=== PATIENT | female | born 1990 | race Caucasian/White ===

== ENCOUNTER → 2019-09-23 15:52 | Outpatient (CLI) | payer OTHER, SELFPAY ==
[2019-09-23 16:38] LABS: Fetal Fibronectin Negative
== END ==
PROVIDERS: Visit Provider Obstetrics & Gynecology
DX: O60.00 Preterm labor without delivery, unspecified trimester (principal); Z3A.00 Weeks of gestation of pregnancy not specified
CPT/HCPCS: 82731

== ENCOUNTER 2019-11-08 07:05 | Inpatient (IN) | payer OTHER, SELFPAY ==
[2019-11-08] VITALS (50 sets, daily range): BP systolic 94–144; BP diastolic 54–92; PULSE 64–116; RESP 16–18; TEMP 36.3–37.2; O2SAT 96–100; BMI 29.0
[2019-11-08] MEDS: Lactated Ringers 1,000 ML 50 ML IV (08:01)
[2019-11-08] MEDS: Lactated Ringers 500 ML 999 ML IV (08:01)
[2019-11-08 08:28] LABS: Absolute Lymphocyte Count 1.83 X10^3/uL (0.83-4.51); Absolute Neutrophil Count 5.1 X10^3/uL (2.0-7.7); Basophil# 0.04 X10^3/uL; Basophil% 0.5 % (0-1); Eosinophil# 0.05 X10^3/uL; Eosinophils% 0.7 % (0-5); Hematocrit 35.5 % (37-47); Hemoglobin 12.1 g/dL (12.0-15.0); Lymphocyte # 1.83 X10^3/ul (4.0); Lymphocyte % 24.3 % (19-41); Mean Corp Hgb Conc 34.1 g/dL (32-36); Mean Corpuscular Hgb 33.2 pg (27.0-32.0); Mean Corpuscular Volume 97.5 fL (81-99); Monocyte# 0.46 X10^3/uL; Monocyte% 6.1 % (0-10); NRBC Flagged by Analyzer 0 % (0-5); Neutrophil % 67.9 % (47-70); Platelet Count 151 K/mm3 (150-450); RBC Distribution Width CV 12.7 % (11.6-14.6); RBC Distribution Width SD 44.6 fl (35.1-43.9); Red Blood Count 3.64 M/mm3 (4.2-5.4); White Blood Count 7.5 K/mm3 (4.4-11.0)
[2019-11-08] MEDS: Oxytocin 30 units/NS 500 ml 30 UNITS/500 ML IV.SOLN IV (08:49)
--- NOTE | 2019-11-08 10:00 | PCM.HP.BLA ---
History and Physical Date of Admission: 11/08/19 ACOG ANTEPARTUM RECORD - HISTORY AND PHYSICAL (11/08/2019) Name: DIANE ON History of This : This is a 29-year-old G3, P2 who presents for elective induction at 39+ weeks gestation. care has been uneventful. OB Physician: ENEIDA [place]'s Physician: Angel Jackson ...................................................................... : 1990 Age: 29 Address: [address] [place] [address] Phone: ([phone] ([phone] Insurance Carrier: [employer] [id number] Emergency Contact: CELIA NO [phone] ...................................................................... Final GEMA: 11/09/19 By Ultrasound: 8 weeks 2 days PARITY: (G-Total Pregnancies P-Fullterm,Premature,Induced AB,Spont AB, Ectopics, Multiple,Living) GEMA CONFIRMATION: By LMP: 02/02/19 Final GEMA: 11/09/19 OB PROBLEM LIST: First delivery 24 h labor w 4 h 2nd stage. Second baby 1 hour labor w 3 pushes. [facility] tour- delivered in [place] previously. MULTIPLE SEVERE DRUG ALLERGIES W ANAPHYLACTIC REACTION: TYLENOL, IBUPROFEN, OMEPRAZOLE. SUDAFED, PHENYLEPHINE, CHEWABLE VITAMIN C. CARRIES EPI PEN. At NOB visit wt down 10#. Going to [place] for 2 weeks in Mar 2019 ALLERGIES: Ibuprofen Anaphylaxis Omeprazole Anaphylaxis Phenylephrine Anaphylaxis Sudafed Anaphylaxis Tylenol Anaphylaxis MEDICATIONS: EpiPen 0.3 mg/0.3 mL injection, auto-injector As Directed Gummies 400 mcg-35 mg-25 mg-5 mg chewable tablet opposite day of other pnv One Daily 27 mg iron- 800 mcg tablet every other day Zofran 8 mg tablet One pill by mouth three times a day prn nausea SOCIAL HISTORY: Smoking - Never Alcohol Use - RARELY not while Diet - balanced Diet, caffeine < 2 drinks per day and Lactose intolerance in milk. Uaually good water intake. 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 Illicit Drug Use - denies use of street drugs Sexual Activity - single sexual partner Residence - owns a home Place of - [place] Hours Worked - prn Spouse-Sig Other Name - Celia Spouse-Sig Other Occupation - [employer] Spouse-Sig Other Phone No - [phone] Children Name(s) - Jeison Medina PRIOR DELIVERY HISTORY DEL DATE GEST LAB WT LB WT OZ TYPE ANES LABOR TX 07 Aug 06 40 24 7 7 Vag Epidural No 20 Aug 08 40 1 8 4 Vag Local No ANTEPARTUM FLOW CHART VISIT GE RTC FU F F CT U U DATE WK MD WKS HT PN HR M SS BP ED WT CT GL D EF ST __ ____ ___ __ __ ___ __ __ __ ___ __ __ __ ___ __ 08 Oct JMW 1 38 + + 110/88 sl 156 tr - S+ Oct JMW 1 37 V + + 112/62 tr 156 tr - S Sep CH 1 36 V + + 120/84 sl 156 - - 4 75 -1 Sep JMW 1 36 V + + 116/70 sl 157 tr - 3 75 -1 Sep JMW 1 35 V + + 124/74 sl 155 - - S August JMW 2 33 V + + 126/74 sl 156 - - 2+ 50 -2 September 24 JMW 3 30 + + 124/80 tr 151 tr - 16 Aug 22 JMW 3 27 + + 124/80 0 150 tr - Jun 16 JMW 4 20 + + 136/78 0 140 - - May 11 JMW 5 14 + US 118/70 0 138 - - Apr 06 SHM 4 on 140/88 0 146 tr - ANTEPARTUM NOTE(S): Nov 03 2019: Induce per request Oct 27 2019: Ctxs-occas, Good FM Oct 20 2019: see note Oct 13 2019: GBS Today and LARC Signed,Good FM Oct 06 2019: Good FM Sep 23 2019: see progress note, off work, FFN sent, OFF Work Sep 03 2019: CBC,OGCT Today,Good FM,Feeling Well Aug 12 2019: Glucola/Instructions Given.Good FM Jun 21 2019: Sono Today,Feeling Well May 12 2019: PNV,NOB and Shira,Extreme N/V Apr 16 2019: spotting/bleeding COMPREHENSIVE ANTEPARTUM NOTE(S): Oct 27 2019: Reports had contractions every six minutes last evening for about four hours, then went to bed at eleven and slept through the night. Contractions continue this morning, and she has not been timing them as of yet. Denies spotting or fluid leakage thus far. ALPA Oct 20 2019: Diane is being seen for PNV. Pt states baby had hiccups for about 3 hours yesterday and since he has felt different. She said she has had more cramping and did have spotting 3-4 days ago. AM Oct 20 2019: Pt of Dr. Vidse's here today for PNV. Reports +FM. FHR 136. SVE /-1 soft, stretchy and anterior. Lots of FM while in room so decision not to have NST, but reassured if ever feeling decreased movements again to let us know and NST to be done. Understands signs of labor and when to call. - CH Oct 19 2019: H taken to OB. tkg Oct 06 2019: Diane thinks she passed some of her mucous plug this morning w/some spotting. After that, she had 3 episodes of her abdomen being tight w/ no relief for 25-30 min. Pubic bone still very painful. Concerned about fetus having more frequent episodes of hiccoughs. FM has decreased, but sitll having at least 10 FM in 2 hrs. 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 Feeling more pelvic pressure, thinks she has pubic bone separation, R hip flexor pain. Good FM. Having Abdulkadir Bañuelos > 6/hr -- drinking a gallon water daily-- states she has been having ctx's for the past month. Still has ctx's when not at home. Passed a large chunk of mucous over the weekend. No spotting. No leaking fluid. She would like to discuss stopping work. [facility] May 12 2019: Diane and Celia are here for NOB nurse visit with GEMA 11-09-19 planning a vag del at [facility], uncertain of epidural, using [facility] ped service and will breastfeed. 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 Celia works for [employer]. They have an 8 1/2 yo daughter and a 6 1/2 yo son. The pg is welcomed. Diane has multiple allergies to drugs including: Ibuprofen, Tylenol, Omeprazole, Sudafed, Phenylephrine and chewable Vitamin C. She has an anaphylactic reaction to these. Diane carries a current epi pen. She is extremely cautious about all medications. Diane is a lifetime non smoker, very rarely drinks alcohol and denies past or present street drug use. Her diet is balanced- she drinks lactose free milk and minimal caffeine. Usually she drinks a good amt of water. She is 5 days home from a 2 week trip to [place] where she vomited at least 10 x a day the whole visit. Her weight today is 10# down from 12-20-19. She is starting to feel better. Long dip on urine no ketones. Diane is active at work but hasn't felt much like doing any exercise. Enc to walk 20 min q day unless inclement weather. No bleeding since last visit. Genetic Screening form completed noting no family issues. She is completing a course of Amoxicillin for a sinus infection and occ takes Zofran ODT. They decline AFP and CF tests. Warning signs in reviewed as well as otc meds ok to take, wearing seatbelt low on her abdomen, lifting restriction of 20-25#, the importance of protein in her diet and reaching our office after hours. She delivered her other children at [facility] in [place]. The first was a long 1st and 2nd stage with an epidural that did not make me numb at all and wet the pillow behind me. Her second was a one hour and 3 pushes labor. [facility] OB tour suggested and written out for her. She nursed for 13 months and 10 months. No office classes needed. They have a copy of What to Expect. US done previously. Routine labs drawn today. Enc to call w concerns. Visit took one hour. Teresa HARMON. Apr 16 2019: Diane is here for emergency visit for evaluation of heavy bleeding. She had prior viable u/s. Today u/s shows viable IUP and no bleed. Further f/u with Dr NG for evaluation of cervix. LMT Apr 03 2019: GC/CT negative - CH Apr 01 2019: Diane is being seen for missed menses visit. Pt is new to facility. is with pt for visit. . UPT in office is positive. LMP 10-8-19. Pt is about 8 weeks and 2 days. GEMA 11-09-19. Pt has alot of pharmaceutical allergies. She also rotates prenatals due to having a diet high in iron and does not want to have too much iron. Pt states her last pap was 2018 and was normal. Agreed to do pap and cultures today. She delivered two other children at [facility] where she does not have an ID to anymore so she may not be able to get records. Medications and allergies are up to date. AM Apr 01 2019: ok REVIEW OF SYSTEMS: GENERAL - Denies fever, or chills SKIN - Denies rash, new skin lesions, or change in moles EYES - Denies blurred vision, or change in visual acuity EARS - Denies ear pain, or difficulty hearing NOSE - Denies nasal congestion, discharge, or bleeding MOUTH - Denies sore throat, or difficulty swallowing NECK - Denies pain or swelling RESPIRATORY - Denies shortness of breath, cough, wheezing CARDIOVASCULAR - Denies palpitations, chest pain, orthopnea, PND, peripheral edema, syncope or claudication GASTROINTESTINAL - Denies nausea, vomiting, diarrhea, constipation, Denies abdominal pain, melena and or bright red blood GENITOURINARY - Denies dysuria, frequency of urination, urgency, or hesitancy MUSCULOSKELETAL - Denies joint or muscle pain, or back pain NEUROLOGICAL - Denies localized numbness, weakness, or tingling PSYCHIATRIC - Denies depression, anxiety, substance abuse or suicide attempts ENDOCRINE - Denies heat or cold intolerance, weight loss or gain, increasing thirst HEMATO-IMMUNOLOGIC - Denies easy bruising, bleeding, oral ulcerations or recurrent infections GENETICS SCREENING: Age 35+ years: No Thalassemia: No Neural Tube Defect: No Down Syndrome: No FÉLIX-SACHS: No Sickle Cell Disease: No Hemophilia: No Musc. Dystrophy: No Cystic Fibrosis: No-declines screening [place] Chorea: No Mental Retardation: No Fragile X: No Other genetic: No Other defects: No SABs/still births: No Drugs since LMP: Yes, Amoxicillin, Zofran INFECTION HISTORY: High risk AIDS: No High risk Hepatitis: No Exposed to TB: No Exposed to Herpes: No Rash/viral illness since LMP: No History of STD: No MENSTRUAL HISTORY: *Menses Amount/Duration: 6-7 DAYSMenses Regularity: RegularFrequency: monthly* PAST SUMMARY: PARITY: 1. Total Pregnancies............ 3 2. Full Term Pregnancies........ 2 3. Premature.................... 0 4. Abortions - Induced.......... 0 5. Abortions - Spontaneous...... 0 6. Ectopics..................... 0 7. Multiple Births.............. 0 8. Living Children.............. 2 PAST #1: Date of :.................. 08/02/10 Gestation Weeks:................ 40 Length of labor(hours):......... 24 Sex:............................ F Weight-lbs:............... 7 Weight-oz:................ 7 Type of Delivery:............... Vag Type of Anesthesia:............. Epidural Place of Delivery:.............. [place] Treatment of Labor?:.... No Comment: 4H 2ST, [place] PAST #2: Date of :.................. 08/15/12 Gestation Weeks:................ 40 Length of labor(hours):......... 1 Sex:............................ M Weight-lbs:............... 8 Weight-oz:................ 4 Type of Delivery:............... Vag Type of Anesthesia:............. Local Place of Delivery:.............. [place] Treatment of Labor?:.... No Comment: RAPID 2STAGE PHYSICAL EXAMINATION General Appearence: 29 yo female in no acute distress Vital Signs: AF, VSS Heart: RRR without rubs or gallops Lungs: CTA x 2 Breasts: deferred Abdomen: gravid Pelvis: Cervix: 4/75 Presentation: cephalic Station: -2 Fetus: Size: AGA Movement: present Heart: present Labs for : DIANE ONEAL since 02/12/2019 ORDER DATEIN DESCRIPTION VALUE UNITS RANGE A+ COMMENT TYPE AND SCREEN 11/08/19 Reason for Type AND Screen/Red Cells: Labor [facility]~[address] [place], [address]~ BLOOD TYPE GEL A POSITIVE N ANTIBODY SCREEN NEGATIVE N CBC W/DIFF, AUTOMATED 11/08/19 NOTE Original Ordering Provider: Rufina Vides WBC 7.5 K/mm3 4.4-11.0 RBC 3.64 M/mm3 4.2-5.4 L HGB 12.1 g/dL 12.0-15.0 HCT 35.5 % 37-47 L MCV 97.5 fL 81-99 MCH 33.2 pg 27.0-32.0 H MCHC 34.1 g/dL 32-36 RDW CV 12.7 % 11.6-14.6 RDW SD 44.6 fl 35.1-43.9 H PLT 151 K/mm3 150-450 MPV 13.0 fl 6.2-12.0 H NEUT% 67.9 % 47-70 LY% 24.3 % 19-41 MONO% 6.1 % 0-10 EO% 0.7 % 0-5 BASO% 0.5 % 0-1 IM GRAN % 0.500 % 0.0-0.9 IG% - Immature Granulocytes (promyelocytes, myelocytes and metamyelocytes) > 1% indicates that a LEFT SHIFT is Present. ABSOLUTE NEUT 5.1 X10 3/uL 2.0-7.7 ABSOLUTE LYMPH 1.83 X10 3/uL 0.83-4.51 NRBC, FLAGGED 0 % 0-5 STREP GP B CULTURE 10/13/19 STREP GP B CULTURE Negative Negative Centers for Disease Control and Prevention (CDC) and [place] Congress of Obstetricians and Gynecologists (ACOG) guidelines for prevention of group B streptococcal (GBS) disease specify co-collection of a vaginal and rectal swab specimen to maximize sensitivity of GBS detection. Per the CDC and ACOG, swabbing both the lower vagina and rectum substantially increases the yield of detection compared with sampling the vagina alone. . Penicillin G, ampicillin, or cefazolin are indicated for intrapartum prophylaxis of GBS colonization. Reflex susceptibility testing should be performed prior to use of clindamycin only on GBS isolates from penicillin-allergic women who are considered a high risk for anaphylaxis. Treatment with vancomycin without additional testing is warranted if resistance to clindamycin is noted. AMBIGUOUS TEST ORDER 10/13/19 AMBIGUOUS TEST ORDER A specimen was received for microbiology/virology testing with either an incorrect test number or without a written test number. The specimen has been processed according to the default policy listed in the Microbiology Appendix of the Directory of Services. Please use the correct test numbers to assure optimum processing of the specimens. Reviewed by RUFINA FIBRONECTIN 09/23/19 NOTE Original Ordering Provider: Rufina Vides FFN Negative Reviewed by RUFINA CUBA. DIABETES 1-HR SCREEN 09/03/19 GESTATIONAL DIABETES SCREEN 119 mg/dL 65-139 According to ADA, a glucose threshold of >139 mg/dL after 50-gram load identifies approximately 80% of women with gestational diabetes mellitus, while the sensitivity is further increased to approximately 90% by a threshold of >129 mg/dL. CBC WITH DIFFERENTIAL/PLATELET 09/03/19 WBC 8.5 x10E3/uL 3.4-10.8 RBC 3.96 x10E6/uL 3.77-5.28 HEMOGLOBIN 13.0 g/dL 11.1-15.9 HEMATOCRIT 38.2 % 34.0-46.6 MCV 97 fL 79-97 MCH 32.8 pg 26.6-33.0 MCHC 34.0 g/dL 31.5-35.7 RDW 11.9 % 11.7-15.4 PLATELETS 173 x10E3/uL 150-450 NEUTROPHILS 76 % Not Estab. LYMPHS 18 % Not Estab. MONOCYTES 5 % Not Estab. EOS 1 % Not Estab. BASOS 0 % Not Estab. IMMATURE CELLS NEUTROPHILS (ABSOLUTE) 6.5 x10E3/uL 1.4-7.0 LYMPHS (ABSOLUTE) 1.6 x10E3/uL 0.7-3.1 MONOCYTES(ABSOLUTE) 0.4 x10E3/uL 0.1-0.9 EOS (ABSOLUTE) 0.1 x10E3/uL 0.0-0.4 BASO (ABSOLUTE) 0.0 x10E3/uL 0.0-0.2 IMMATURE GRANULOCYTES 0 % Not Estab. IMMATURE GRANS (ABS) 0.0 x10E3/uL 0.0-0.1 NRBC HEMATOLOGY COMMENTS: Reviewed by RUFINA HCV ANTIBODY 05/12/19 HEP C VIRUS AB <0.1 s/co ratio 0.0-0.9 Negative: < 0.8 Indeterminate: 0.8 - 0.9 Positive: > 0.9 . The CDC recommends that a positive HCV antibody result be followed up with a HCV Nucleic Acid Amplification test ([id number]). NTI Urine Tube (Conti) NTI Urine Tube (Conti) . A urine culture transport was received with no test indicated. If testing is required on this specimen, please contact the [facility] Client Inquiry/Technical Services Department to obtain a Request for Written Authorization Form. CBC/D/PLT+RPR+UA+RH+ABO+RUB... 05/12/19 TSH 0.774 uIU/mL 0.450-4.500 HBSAG SCREEN Negative Negative RPR Non Reactive Non Reactive RUBELLA ANTIBODIES, IGG 13.00 index Immune >0.99 Non-immune <0.90 Equivocal 0.90 - 0.99 Immune >0.99 ABO GROUPING A RH FACTOR Positive Please note: Prior records for this patient's ABO / Rh type are not available for additional verification. ANTIBODY SCREEN Negative Negative HIV SCREEN 4TH GENERATION WRFX Non Reactive Non Reactive WBC 7.1 x10E3/uL 3.4-10.8 RBC 4.31 x10E6/uL 3.77-5.28 HEMOGLOBIN 13.6 g/dL 11.1-15.9 HEMATOCRIT 40.2 % 34.0-46.6 MCV 93 fL 79-97 MCH 31.6 pg 26.6-33.0 MCHC 33.8 g/dL 31.5-35.7 RDW 13.1 % 11.7-15.4 Please note reference interval change PLATELETS 216 x10E3/uL 150-450 NEUTROPHILS 68 % Not Estab. LYMPHS 24 % Not Estab. MONOCYTES 7 % Not Estab. EOS 1 % Not Estab. BASOS 0 % Not Estab. IMMATURE CELLS NEUTROPHILS (ABSOLUTE) 4.8 x10E3/uL 1.4-7.0 LYMPHS (ABSOLUTE) 1.7 x10E3/uL 0.7-3.1 MONOCYTES(ABSOLUTE) 0.5 x10E3/uL 0.1-0.9 EOS (ABSOLUTE) 0.0 x10E3/uL 0.0-0.4 BASO (ABSOLUTE) 0.0 x10E3/uL 0.0-0.2 IMMATURE GRANULOCYTES 0 % Not Estab. IMMATURE GRANS (ABS) 0.0 x10E3/uL 0.0-0.1 NRBC HEMATOLOGY COMMENTS: SPECIFIC GRAVITY >=1.030 1.005-1.030 A PH 5.5 5.0-7.5 URINE-COLOR Yellow Yellow APPEARANCE Clear Clear WBC ESTERASE Negative Negative PROTEIN Negative Negative/Trace GLUCOSE Negative Negative KETONES Negative Negative OCCULT BLOOD Negative Negative BILIRUBIN Negative Negative UROBILINOGEN,SEMI-QN 0.2 mg/dL 0.2-1.0 NITRITE, URINE Negative Negative MICROSCOPIC EXAMINATION Microscopic not indicated and not performed. Reviewed by RUFINA DA SILVA/GC AMPLIFICATION 04/01/19 CHLAMYDIA TRACHOMATIS, ANGELA Negative Negative NEISSERIA GONORRHOEAE, ANGELA Negative Negative Reviewed by CHARTMAN Impression /Plan: 39+ week intrauterine for elective induction. Preparations in progress for delivery.
[2019-11-08] MEDS: fentaNYL-bupivacaine (epidural) 100 ML BAG EPIDURAL (10:04)
[2019-11-08] MEDS: Lactated Ringers 1,000 ML 200 ML IV (13:25)
[2019-11-08] MEDS: Oxytocin 30 units/NS 500 ml 30 UNITS/500 ML IV.SOLN 334 UNITS IV (14:19)
--- NOTE | 2019-11-08 14:29 | PCM.OPRPT ---
Vaginal Delivery Maternal Presentation: Elective Induction Method of Induction: Pitocin, Amniotomy Amniotic Membrane Rupture Type: Artificial Amniotic Fluid Description: Clear Final GEMA: 11/09/19 Final GEMA Source: US <20 weeks Gestational age: 39 Weeks and 6 Days Date of Procedure: 11/08/19 Pre-Operative Diagnosis: IUP Post-Operative Diagnosis: IUP Surgery/ Procedure Performed: Spontaneous Vaginal Delivery Type of Anesthesia: Epidural Description of Procedure: Spontaneous vaginal delivery of a viable female infant with Apgars of 8/9 from an occiput anterior presentation with clear amniotic fluid and normal three-vessel placenta. No episiotomy. First-degree midline laceration repaired with 3-0 repeat suture under epidural. Sponges okay. Delivery physician: Phil Vides MD. Presentation: Vertex Placental Delivery Description: Spontaneous Placenta Disposition: [facility] Cord Vessel Description: 3 Vessels Cord Entanglement: None Estimated Blood Loss: 250 cc Infant A gender: Female (1 minute): 8 (5 minute): 9 Episiotomy Description: None Laceration: Midline, 1st degree Medications given after delivery: IV Pitocin Complications: None
[2019-11-08] MEDS: 0.9% Saline Lock 10 ML Syringe IV (17:32)
[2019-11-09] VITALS (7 sets, daily range): BP systolic 107–123; BP diastolic 68–92; PULSE 79–96; RESP 16–18; TEMP 36.6–37.2
--- NOTE | 2019-11-09 04:43 | PN.OBGYN_ITS ---
Subjective: Patient without complaints. Breast-feeding going well. Minimal vaginal bleeding. Wants to go home later today if baby is able to go. - Physical Exam Vitals/I&O's: Vital Signs Temp Pulse Resp BP Pulse Ox 97.4 F L 78 16 116/77 98 11/08/19 23:28 11/08/19 23:28 11/08/19 23:28 11/08/19 23:28 11/08/19 23:28 Oxygen Delivery Method Room Air Weight: 158 lb 12.8 oz Body Mass Index (BMI) 29.0 Intake and Output for Last 24 Hours 11/07/19 11/08/19 11/09/19 23:59 23:59 23:59 Intake Total 2479.03 / 2479.03 Output Total 1950 / 1950 Balance 529.03 / 529.03 Laboratory Results 11/08/19 07:52: WBC 7.5, RBC 3.64 L, Hgb 12.1, Hct 35.5 L, MCV 97.5, MCH 33.2 H, MCHC 34.1, RDW Std Deviation 44.6 H, RDW Coeff of Ilene 12.7, Plt Count 151, MPV 13.0 H, Immature Gran % (Auto) 0.500, Neut % (Auto) 67.9, Lymph % (Auto) 24.3, [place] % (Auto) 6.1, Eos % (Auto) 0.7, Baso % (Auto) 0.5, Absolute Neuts (auto) 5.1, Absolute Lymphs (auto) 1.83, Nucleated RBC % 0 11/08/19 07:52: Blood Type A POSITIVE, Antibody Screen NEGATIVE Current Medications Bisacodyl (Dulcolax) 10 mg RECTAL UD PRN PRN Reason: If no BM Dibucaine (Dibucaine) 1 applic TOPICAL TID PRN PRN; Protocol PRN Reason: Discomfort Hydrocortisone (Hytone) 1 applic TOPICAL TID PRN PRN; Protocol PRN Reason: Discomfort Methylergonovine Maleate (Methergine) 0.2 mg IM X1 PRN PRN Reason: Excess bleeding/uterine atony Ondansetron HCl (Zofran) 4 mg IV Q4H PRN PRN PRN Reason: Nausea Oxycodone HCl (Oxyir) 5 - 10 mg PO Q4H PRN PRN PRN Reason: Pain Score 4-10/10 Multivit/Folic Acid/Iron (Prenatabs Fa) 1 tablet PO DAILY@1200 JORGE Senna/Docusate Sodium (Senokot-S, Esperanza-Colace) 1 - 2 tablet PO DAILY PRN PRN PRN Reason: Constipation Simethicone (Mylicon) 80 mg PO PCHS PRN PRN Reason: Indigestion/Stomach pain Sodium Chloride () 5 - 15 ml IV UD PRN PRN Reason: SALINE FLUSH Last Admin: 11/08/19 17:32 Dose: 10 ml Documented by: Zolpidem Tartrate (Ambien (Generic)) 5 mg PO QHS PRN PRN PRN Reason: Insomnia Medical Necessity - Tobacco Use Smoking Status: Never smoker Assessment/Plan Doing well post day #1 status post routine spontaneous vaginal delivery. Will discharge to home with routine instructions.
--- NOTE | 2019-11-09 04:44 | DCINST_ITS ---
Discharge Diet: No Restrictions Discharge Activity: May Shower, May Take a Tub Bath May resume sexual activity in: 4-6 weeks Additional Activity Instructions:: Nothing in the vagina for 4-6 weeks. You may return to work/school in 6 weeks. Call your doctor if you observe: Inability to urinate, Inability to have a bowel movement, Using more than one pad per hour Additional Instructions: If you experience any of the following, contact your healthcare provider. * Bleeding that soaks a pad every hour for 2 hours * Fever 100.4 or higher * Unrelieved incision or abdominal pain * Swelling, redness, discharge or bleeding from your incision or episiotomy site * Your incision begins to separate * Problems urinating (including inability to urinate or burning while urinating). * Visual changes * Severe headache * Flu-like symptoms * Pain or redness in one of both of your breasts * Pain, warmth, tenderness or swelling in your legs, especially the calf area * Frequent nausea and vomiting * Symptoms of depression or anxiety If you experience any of the following, call 911 or go to the nearest Emergency Room. * Chest pain * Problems breathing * Seizure activity * Partial or complete paralysis of a body part, slurred speech, weakness or drooping of the face, or a sudden inability to walk or hold your balance Allergies/Adverse Reactions: Allergies acetaminophen [From Tylenol] Allergy (Verified 11/08/19 07:50) Anaphylaxis ibuprofen Allergy (Verified 11/08/19 07:48) Anaphylaxis omeprazole Allergy (Verified 11/08/19 07:50) Anaphylaxis pseudoephedrine [From Sudafed] Allergy (Verified 11/08/19 07:50) Anaphylaxis Medications to take at Discharge Vit No.130/Iron/Folic [ Tablet] 1 tab PO DAILY 11/08/19 Please Follow Up With: Phil Vides MD - [phone] When: Call to make an appointment with your doctor in 6 weeks. Primary Care Physician: Care Physician,No Primary [Primary Care Provider] - Test Results: Test results from this visit will be discussed in further detail at your follow- up appointment, if applicable.
--- NOTE | 2019-11-09 04:44 | PCM.DCVAG ---
Discharge Diet: No Restrictions Discharge Activity: May Shower, May Take a Tub Bath May resume sexual activity in: 4-6 weeks Additional Activity Instructions:: Nothing in the vagina for 4-6 weeks. You may return to work/school in 6 weeks. Call your doctor if you observe: Inability to urinate, Inability to have a bowel movement, Using more than one pad per hour Additional Instructions: If you experience any of the following, contact your healthcare provider. Bleeding that soaks a pad every hour for 2 hours Fever 100.4 or higher Unrelieved incision or abdominal pain Swelling, redness, discharge or bleeding from your incision or episiotomy site Your incision begins to separate Problems urinating (including inability to urinate or burning while urinating). Visual changes Severe headache Flu-like symptoms Pain or redness in one of both of your breasts Pain, warmth, tenderness or swelling in your legs, especially the calf area Frequent nausea and vomiting Symptoms of depression or anxiety If you experience any of the following, call 911 or go to the nearest Emergency Room. Chest pain Problems breathing Seizure activity Partial or complete paralysis of a body part, slurred speech, weakness or drooping of the face, or a sudden inability to walk or hold your balance Allergies/Adverse Reactions: Allergies acetaminophen [From Tylenol] Allergy (Verified 11/08/19 07:50) Anaphylaxis ibuprofen Allergy (Verified 11/08/19 07:48) Anaphylaxis omeprazole Allergy (Verified 11/08/19 07:50) Anaphylaxis pseudoephedrine [From Sudafed] Allergy (Verified 11/08/19 07:50) Anaphylaxis Medications to take at Discharge Vit No.130/Iron/Folic [ Tablet] 1 tab PO DAILY 11/08/19 Please Follow Up With: Phil Vides MD - [phone] When: Call to make an appointment with your doctor in 6 weeks. Primary Care Physician: Care Physician,No Primary [Primary Care Provider] - Test Results: Test results from this visit will be discussed in further detail at your follow-up appointment, if applicable.
[2019-11-09] MEDS: Hydrocortisone 2.5% Crm 1 APPLIC TOPICAL (09:37)
[2019-11-09] MEDS: Senna/Docusate Sodium 1 Tablet PO (09:37)
== END 2019-11-09 17:00 | disposition home or self-care (01) | DRG 807 ==
PROVIDERS: Admitting Provider Obstetrics & Gynecology; Referring Provider Obstetrics & Gynecology; Visit Provider Obstetrics & Gynecology
DX: O80 Encounter for full-term uncomplicated delivery (principal); Z37.0 Single live birth; Z3A.39 39 weeks gestation of pregnancy
CPT/HCPCS: 59025; 59050; 85025; 86850; 86900; 86901; 99218; J7120; A4216; G0378

== ENCOUNTER 2024-09-08 21:36 | Inpatient (IN) | payer OTHER, SELFPAY ==
[2024-09-08] VITALS (9 sets, daily range): BP systolic 107–137; BP diastolic 73–85; PULSE 85–107; RESP 14–18; TEMP 36.6; O2SAT 98–99
--- NOTE | 2024-09-08 21:32 | HP.PCM.OB_ITS ---
HPI - General HPI Narrative DIANE NO, is a 34 F who presents in spontaneous onset of labor with spontaneous rupture of membranes. Maternal Data Information GEMA Calculator Estimated Delivery Date Method Current WG Current Estimate 09/07/24 Manual 40w 1d PFSH PFSH Home Medications ?Medication ?Instructions ?Recorded ?Last Taken ?Type vits no.130-ferrous fum 1 tab PO DAILY pregna ncy 11/08/19 11/06/19 History 27 mg iron-folic acid 800 mcg tablet Allergy/AdvReac Type Severity Reaction Status Date / Time acetaminophen (From Tylenol) Allergy Anaphylaxis Verified 11/08/19 07:50 ibuprofen Allergy Anaphylaxis Verified 11/08/19 07:48 omeprazole Allergy Anaphylaxis Verified 11/08/19 07:50 pseudoephedrine (From Allergy Anaphylaxis Verified 11/08/19 07:50 Sudafed) Social History Smoking Status: Never smoker History Elective abortions Hx Para 2 Spontaneous abortions Hx # Term Pregnancies Ectopic pregnancies Hx # Pregnancies Multiple births # of living children NST FHR Rate Baby A Baseline: 140 Variability:: Moderate Accelerations:: 15 x 15 Decelerations:: None NST Reactive:: Yes FHR Category:: Category I Uterine Activity:: 1-2 minutes ROS Eyes Eyes: Denies blurry vision, change in vision or spots in vision ENT HEENT: Denies dizziness or headache(s) Cardiovascular Cardiovascular: Denies abdominal pain, chest pain or dyspnea Respiratory/Chest Respiratory/Chest: Denies cough, dyspnea, shortness of breath at rest or shortness of breath with exertion Gastrointestinal Gastrointestinal: Denies abdominal pain, diarrhea or vomiting Genitourinary Genitourinary: Denies change in urinary stream, difficulty urinating or dysuria Musculoskeletal Musculoskeletal: Reports none Integumentary Integumentary: Denies rash Neurologic Neurologic: Denies dizziness, headache(s), memory loss or weakness Psychiatric Psychiatric: Reports none Vital Signs Vital Signs Vital Signs: 09/08/24 21:20 09/08/24 21:20 09/08/24 21:20 Temperature 97.9 F Pulse Rate 99 Blood Pressure BP Systolic BP Diastolic Pulse Ox 98 09/08/24 21:21 09/08/24 21:21 Temperature Pulse Rate 100 Blood Pressure 137/85 H BP Systolic 137 BP Diastolic 85 Pulse Ox Physical Exam Const alert, oriented x3 and no apparent distress General Appearance: cooperative Orientation / Consciousness: awake Exam Limitations: no limitations HEENT normocephalic Head and Scalp: normal to inspection Eyes General Eye: normal appearance of both eyes Neck full ROM and no lymphadenopathy Lymph Lymphatic: no lymphadenopathy noted Chest inspection of chest normal Resp normal respiratory effort, normal air movement and clear to auscultation bilaterally Effort and Inspection: able to speak in complete sentences and symmetric chest movement Cardio regular rate and regular rhythm GI normal to inspection, nondistended, normoactive bowel sounds Manual OB Exam: presentation cephalic Back/Spine normal ROM Extremity full ROM and no calf tenderness Skin no rashes or lesions noted General Skin Exam: no breakdown Neuro oriented x3 and CN's II-XII intact bilaterally Psych mental status grossly normal and thought process normal Labs Labs Labs: Blood Type A POSITIVE Antibody Screen NEGATIVE Hct 35.5 % (37-47) L Hgb 12.1 g/dL (12.0-15.0) Syphilis Total Ab Pending Rhogam given: No GBS negative Assessment & Plan (1) 40 weeks gestation of : (2) Spontaneous onset of labor: (3) Spontaneous rupture of amniotic membranes: (4) Multigravida in third trimester: (5) Obesity affecting in third trimester: (6) Multiple drug allergies: (7) Allergy to NSAIDs: PLAN: Plan CE /-1 SROM for clear fluid Admit to labor and delivery NST reactive IA Desires to be in tub Dr. Smith notified of admission and plan of care
[2024-09-08] MEDS: Oxytocin 15 Units/NS 250ml 15 UNITS/250 ML IV.SOLN 334 UNITS IV (22:12)
[2024-09-08 22:21] LABS: Absolute Lymphocyte Count 1.72 X10^3/uL (0.83-4.51); Absolute Neutrophil Count 6.5 X10^3/uL (2.0-7.7); Basophil# 0.03 X10^3/uL; Basophil% 0.3 % (0-1); Eosinophil# 0.06 X10^3/uL; Eosinophils% 0.7 % (0-5); Hematocrit 35.7 % (37-47); Hemoglobin 12.5 g/dL (12.0-15.0); Lymphocyte # 1.72 X10^3/ul (0.83-4.51); Lymphocyte % 19.5 % (19-41); Mean Corpuscular Hgb 32.6 pg (27.0-32.0); Mean Corpuscular Volume 93.2 fL (81-99); Mean Platelet Vol. 13.2 fl (6.2-12.0); Monocyte# 0.48 X10^3/uL; Monocyte% 5.4 % (0-10); NRBC Flagged by Analyzer 0 % (0-5); Neutrophil # 6.51 X10^3/uL (2.7-7.7); Neutrophil % 73.6 % (47-70); Platelet Count 157 K/mm3 (150-450); RBC Distribution Width CV 12.9 % (11.6-14.6); RBC Distribution Width SD 43.8 fl (35.1-43.9); Red Blood Count 3.83 M/mm3 (4.2-5.4); White Blood Count 8.8 K/mm3 (4.4-11.0)
--- NOTE | 2024-09-08 22:37 | OB.VAGDELI_ITS ---
Assessment & Plan (1) Allergy to NSAIDs: (2) Multiple drug allergies: (3) (spontaneous vaginal delivery): (4) Care and examination of lactating mother: Maternal Data Information GEMA Calculator Estimated Delivery Date Method Current WG Current Estimate 09/07/24 Manual 40w 1d Vaginal Delivery Maternal Presentation Maternal Presentation: Active Labor and Spontaneous Rupture of Membranes Vaginal Delivery Information Procedure Performed: Spontaneous Vaginal Delivery (water ) Pre-Procedure Diagnosis: Term gestation, spontaneous onset of active labor, Spontaneous rupture of membranes Post-Procedure Diagnosis: , Live male Type of anesthesia: None Estimated Blood Loss: 350 Time of Delivery: 22:10 Findings Description of procedure: Patient arrived to unit and quickly progressed to complete dilation. Requested to get into tub for . With good maternal effort, head delivered followed by anterior shoulder and remainder of body without any force, delay, or traction. Vigorous male was delivered atraumatically under water and slowly placed on maternal chest. Warm water used to cover infant. Assisted p atient out of tub and into bed for delivery of placenta. Pitocin IV started for active management of the third stage of labor. 3 vessel cord clamped and cut after delay by FOB. Placenta delivered spontaneously and intact. After inspection, vagina and perineum are intact. Vaginal sweep performed. Fundus is firm 2 below U and bleeding is hemostatic. Sponge and sharps counts correct. Patient and infant bonding well at this time. Dr. Smith notified of delivery. Routine post orders placed. Presentation: Vertex Amniotic Membrane Rupture Type: Spontaneous Amniotic Fluid Description: Clear Placental Delivery Description: Spontaneous Placenta Disposition: [facility] Specimen collected: No Cord Vessel Description: 3 Vessels Cord Entanglement: None Nuchal Cord Compression: Without compression Infant A Gender: Male (1 minute): 8 (5 minute): 9 Delayed Cord Clamping: Yes Electrocardiographic Technician heavy media operator: No Post Vaginal Deli Medications given after delivery: IV Pitocin Episiotomy Description: None Laceration: None Complication Complications: No
[2024-09-08 22:41] LABS: Syphilis Antibodies Nonreactive (Nonreactive)
[2024-09-08 23:39] LABS: Hepatitis C Antibody Nonreactive (Nonreactive)
[2024-09-08 23:44] LABS: HIV Nonreactive (Nonreactive); Hepatitis B Surface Antigen Nonreactive (Nonreactive); Rubella IgG REAC (Nonreactive)
[2024-09-09] VITALS (15 sets, daily range): BP systolic 108–132; BP diastolic 68–93; PULSE 91–137; RESP 14–18; TEMP 36.2–36.8; O2SAT 98–100; BMI 28.4
[2024-09-09] MEDS: Methylergonovine 0.2 MG/ML Ampul IM (01:01)
--- NOTE | 2024-09-09 01:05 | NURSING ---
Alva in room. Patient having heavier bleeding. Patients fundus above umbilicus. RN stands patient up to go to the bathroom. Patient passes out on toilet, passing large clots and having heavy bleeding. Alva doing fundal massage. Methergine given to patient at 0101 by this RN. Patient's BP and pulse stable. Patient back in bed resting.
[2024-09-09] MEDS: Senna/Docusate Sodium 1 Tablet PO (03:49)
--- NOTE | 2024-09-09 07:06 | PN.OBGYN_ITS ---
Subjective Subjective Patient seen at bedside. Denies any pain. Ambulating and voiding without difficulty. Lochia decreasing. without difficulty. Objective Data Objective Data Vital Signs: Vital Signs Temp Pulse Resp BP Pulse Ox O2 Del Method 98.1 F 109 H 17 117/86 H 99 Room Air 09/09/24 04:18 09/09/24 04:18 09/09/24 04:18 09/09/24 04:18 09/09/24 04:18 09/09/24 04:18 Oxygen Delivery Method Room Air Weight: 171 lb Body Mass Index (BMI) 28.4 Intake & Output: Intake and Output for Last 24 Hours 09/07/24 09/08/24 09/09/24 23:59 23:59 23:59 Intake Total 167 / 167 83 / 83 Output Total 750 / 750 Balance 167 / 167 -667 / -667 Lab / Micro Data Attestation: I reviewed the patient's lab results. 09/08/24 21:33 Labs: Laboratory Results - last 24 hr 09/08/24 21:33: WBC 8.8, RBC 3.83 L, Hgb 12.5, Hct 35.7 L, MCV 93.2, MCH 32.6 H, MCHC 35.0, RDW Std Deviation 43.8, RDW Coeff of Ilene 12.9, Plt Count 157, MPV 13.2 H, Immature Gran % (Auto) 0.500, Neut % (Auto) 73.6 H, Lymph % (Auto) 19.5, [place] % (Auto) 5.4, Eos % (Auto) 0.7, Baso % (Auto) 0.3, Absolute Neuts (auto) 6.5, Absolute Lymphs (auto) 1.72, Nucleated RBC % 0, Syphilis Total Ab Nonreactive, Hep Bs Antigen Nonreactive, Hepatitis C Antibody Nonreactive, HIV 1&2 Antibody Nonreactive, Rubella IgG Antibody REAC, Blood Type A POSITIVE, Antibody Screen NEGATIVE ROS Eyes Eyes: Denies blurry vision, change in vision or spots in vision ENT HEENT: Denies dizziness or headache(s) Cardiovascular Cardiovascular: Denies abdominal pain, chest pain or dyspnea Respiratory/Chest Respiratory/Chest: Denies cough, dyspnea, shortness of breath at rest or shortness of breath with exertion Gastrointestinal Gastrointestinal: Denies abdominal pain, diarrhea or vomiting Genitourinary Genitourinary: Denies change in urinary stream, difficulty urinating or dysuria Musculoskeletal Musculoskeletal: Reports none Integumentary Integumentary: Denies rash Neurologic Neurologic: Denies dizziness, headache(s), memory loss or weakness Physical Exam Const alert and no apparent distress General Appearance: cooperative and comfortable Exam Limitations: no limitations HEENT normocephalic Eyes General Eye: normal appearance of both eyes Neck full ROM General: normal visual inspection Chest Chest: symmetrical chest wall rise Resp normal respiratory effort and normal air movement Effort and Inspection: symmetric chest movement Auscultation: clear to auscultation bilaterally Cardio regular rate and regular rhythm GI normal to inspection, nondistended, normoactive bowel sounds Back/Spine normal ROM Extremity full ROM and no calf tenderness General Extremity: normal exam except as noted Skin no rashes or lesions noted Neuro oriented x3 Speech: speech normal Psych mental status grossly normal Thought Process: normal thought process Assessment & Plan (1) Care and examination of lactating mother: (2) (spontaneous vaginal delivery): (3) Allergy to NSAIDs: (4) Multiple drug allergies: PLAN: Plan PPD 1 - water Episode of passing some large blood clots after delivery when up to void uterus firm 3 below Bleeding minimal Anticipate d/c tomorrow morning
[2024-09-09] MEDS: Carboprost Tromethamine 250 MCG/ML Ampul IM (09:29)
[2024-09-09 09:51] LABS: Hematocrit 24.9 % (37-47); Hemoglobin 8.6 g/dL (12.0-15.0); Mean Corp Hgb Conc 34.5 g/dL (32-36); Mean Corpuscular Hgb 32.3 pg (27.0-32.0); Mean Corpuscular Volume 93.6 fL (81-99); Mean Platelet Vol. 13.3 fl (6.2-12.0); POSITIVE COUNT YES; RBC Distribution Width CV 13.1 % (11.6-14.6); RBC Distribution Width SD 44.3 fl (35.1-43.9); Red Blood Count 2.66 M/mm3 (4.2-5.4); White Blood Count 14.1 K/mm3 (4.4-11.0)
[2024-09-09 10:21] LABS: Scan Indicated on CBC? Y/N YES- FLAGS NOTED
--- NOTE | 2024-09-09 10:38 | PCM.PN.BLA ---
Progress Note Called to evaluate patient for continued vaginal bleeding. Patient passed clots last night and received Methergine. Got up to use the bathroom about 9 AM this morning and passed some more clots and had some tachycardia. Nursing massaged the fundus and it was firm and bleeding slowed again. Was given Hemabate x 1 and when I arrived she was having a lot of nausea and had an emesis after I arrived. Cramping is average. Physical Exam Narrative Awake, alert, mild distress appears uncomfortable and holding her lower abdomen Skin is warm dry and intact, pale [employer]: Intact perineum and labia. Vagina intact. Large clot sitting at the cervical os was removed manually. Brief transabdominal ultrasound was done which showed a bright white endometrial stripe at the fundus. After removing the clot bleeding was minimal and the fundus was 4 cm below the umbilicus and very firm. Patient tolerated the procedure well. Assessment & Plan Assessment/Plan (1) Delayed hemorrhage: PLAN: Plan CBC shows evidence of hemorrhage with acute blood loss anemia. Bleeding is now stabilized. Patient declined having her IV replaced. Received Methergine last night x 1. Now received Hemabate this morning. Discussed with the patient side effects of Hemabate and offered prophylactic Imodium. Declines for now. Offered IM medication for nausea and she declines for now. Discussed with her if further significant bleeding would need to take her to the operating room and replace IV. Patient states understanding. For now repeat CBC ordered tomorrow we will continue to monitor bleeding closely.
[2024-09-10 02:17] VITALS: BP 103/71; PULSE 102; RESP 16; TEMP 36.4; O2SAT 98
[2024-09-10 07:19] LABS: Hematocrit 21.6 % (37-47); Hemoglobin 7.4 g/dL (12.0-15.0); Mean Corp Hgb Conc 34.3 g/dL (32-36); Mean Corpuscular Hgb 32.5 pg (27.0-32.0); Mean Corpuscular Volume 94.7 fL (81-99); Mean Platelet Vol. 12.9 fl (6.2-12.0); Platelet Count 163 K/mm3 (150-450); RBC Distribution Width CV 13.2 % (11.6-14.6); RBC Distribution Width SD 45.1 fl (35.1-43.9); Red Blood Count 2.28 M/mm3 (4.2-5.4); White Blood Count 13.8 K/mm3 (4.4-11.0)
--- NOTE | 2024-09-10 08:25 | PCM.PN.OB ---
Subjective Subjective Doing well. Ambulating and voiding without difficulty. Mild lochia. Breast feeding. Objective Data Objective Data Vital Signs: Vital Signs Temp Pulse Resp BP Pulse Ox O2 Del Method 97.6 F L 102 H 16 103/71 98 Room Air 09/10/24 02:17 09/10/24 02:17 09/10/24 02:17 09/10/24 02:17 09/10/24 02:17 09/10/24 02:17 Oxygen Delivery Method Room Air Weight: 77.564 kg Body Mass Index (BMI) 28.4 Intake & Output: Intake and Output for Last 24 Hours 09/08/24 09/09/24 09/10/24 23:59 23:59 23:59 Intake Total 167 / 167 83 / 83 Output Total 750 / 750 Balance 167 / 167 -667 / -667 Lab / Micro Data 09/10/24 06:58 Labs: Laboratory Results - last 24 hr 09/09/24 09:40: WBC 14.1 H, RBC 2.66 L, Hgb 8.6 L, Hct 24.9 L, MCV 93.6, MCH 32.3 H, MCHC 34.5, RDW Std Deviation 44.3 H, RDW Coeff of Ilene 13.1, Plt Count TNP, MPV 13.3 H, Differential Comment COMMENT 09/10/24 06:58: WBC 13.8 H, RBC 2.28 L, Hgb 7.4 L, Hct 21.6 L, MCV 94.7, MCH 32.5 H, MCHC 34.3, RDW Std Deviation 45.1 H, RDW Coeff of Ilene 13.2, Plt Count 163, MPV 12.9 H ROS Constitutional Constitutional: Denies headache(s) Cardiovascular Cardiovascular: Denies chest pain or dyspnea Gastrointestinal Gastrointestinal: Denies nausea or vomiting Genitourinary Genitourinary: Denies dysuria Physical Exam Const alert, oriented x3 and no apparent distress General Appearance: cooperative and comfortable Eyes PERRL and EOMs intact bilaterally Resp normal respiratory effort GI soft to palpation and non-tender Uterus Palpation: uterus fundus firm ( below umbilicus) Extremity normal to inspection and full ROM Neuro oriented x3 and CN's II-XII intact bilaterally Psych mental status grossly normal Assessment & Plan (1) (spontaneous vaginal delivery): (2) Delayed hemorrhage: PLAN: Plan Discharge home
--- NOTE | 2024-09-10 08:26 | PCM.DC.SUM ---
Providers Date of Admission: 09/08/24 Date of Discharge: 09/10/24 Primary Care Physician: No Primary Care Phys Reason For Visit: VAGINAL DELIVERY Diagnosis Discharge Diagnosis (1) (spontaneous vaginal delivery): Status: Acute Code(s): O80 - Encounter for full-term uncomplicated delivery (2) Delayed hemorrhage: Status: Acute Code(s): O72.2 - Delayed and secondary hemorrhage Plan Discharge home Medications at Discharge Home Medications vits no.130-ferrous fum 27 mg iron-folic acid 800 mcg tablet 1 tab PO DAILY 11/08/19 Hospital Course Operations None Procedures None Summary of Care Provided Minutes Spent on Discharge: 20 Hospital Course: without complications. Delayed hemorrhage. Treated with Methergine and Hemabate. PP anemia. Physical Exam Const alert and no apparent distress Narrative: Fundus firm, below umbilicus. Weight / BMI Weight Weight: 77.564 kg Body Mass Index (BMI) 28.4 ABG / Lab / Microbiology Data 09/10/24 06:58 Laboratory: Laboratory Results - last 24 hr 09/09/24 09:40: WBC 14.1 H, RBC 2.66 L, Hgb 8.6 L, Hct 24.9 L, MCV 93.6, MCH 32.3 H, MCHC 34.5, RDW Std Deviation 44.3 H, RDW Coeff of Ilene 13.1, Plt Count TNP, MPV 13.3 H, Differential Comment COMMENT 09/10/24 06:58: WBC 13.8 H, RBC 2.28 L, Hgb 7.4 L, Hct 21.6 L, MCV 94.7, MCH 32.5 H, MCHC 34.3, RDW Std Deviation 45.1 H, RDW Coeff of Ilene 13.2, Plt Count 163, MPV 12.9 H D/C Instructions May resume sexual activity in: 6 weeks DC O2, CPAP, BIPAP Needs Home O2 Discharge instructions: No Please Follow Up With: Neda Torres MD When: Follow up with our office in 1-2 and 6 weeks or as needed. [phone] Meaningful Use Info Meaningful Use Meaningful Use Diagnoses (Choose all that apply): None applicable Ischemic Stroke Statin Dosing Therapy Reference: STATIN DOSE THERAPY REFERENCE: * Patients > 75 years receive moderate or high dose statin therapy. * Patients 75 years or YOUNGER should receive HIGH intensity statin dose unless contraindicated. You will be required to document reason for non-treatment if statin daily dose does not meet guidelines. HIGH DOSE STATIN THERAPY DAILY Atorvastatin > than or = to 40 mg Rosuvastatin > than or = to 20 mg Amlodipine + Atorvastatin > than or = to 2.5/40 mg Ezetimibe + Simvastatin 10/80 mg Simvastatin 80mg Discharge Plan Admission Admit Date/Time: 09/08/24 21:36 Primary Reason for Your Visit: labor Attending Provider: Sadie Craig Primary Care Provider: Care Physician,Hailey Primary Discharge Orders/Prescriptions Prescriptions: Continued vit no.[id number] 1 EACH tablet 1 tab PO DAILY Referrals / Follow Up: Care Physician,No Primary [Primary Care Provider] - Disposition Disposition (needs filled in before D/C Order can be placed): Home, Self Care
[2024-09-10 08:37] VITALS: BP 117/84; PULSE 93; RESP 16; TEMP 36.6; O2SAT 99
== END 2024-09-10 12:20 | disposition home or self-care (01) | DRG 806 ==
LOC: WPOUT 09-09 07:53 → WP 09-09 07:53
PROVIDERS: Obstetrics & Gynecology; Admitting Provider Advanced Practice Midwife; Referring Provider Advanced Practice Midwife; Visit Provider Advanced Practice Midwife
DX: O72.2 Delayed and secondary postpartum hemorrhage (principal); Z37.0 Single live birth; D62 Acute posthemorrhagic anemia; O99.214 Obesity complicating childbirth; O90.81 Anemia of the puerperium; Z3A.40 40 weeks gestation of pregnancy; Z88.6 Allergy status to analgesic agent
CPT/HCPCS: 36415; 59025; 59050; 85025; 85027; 86703; 86762; 86780; 86803; 86850; 86900; 86901; 87340; 99221; G0378